=== PATIENT | male | born 1980 | race Caucasian/White ===

== ENCOUNTER 2025-01-14 07:20 | Day surgery (SDC) | payer OTHER, SELFPAY ==
--- NOTE | 2025-01-13 06:16 | EKG_ITS ---
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
[2025-01-13 07:16] VITALS: BMI 47.7
[2025-01-13 08:33] LABS: Basophils # (Auto) 0.1 Thou/mm3 (0.0-0.2); Basophils % (Auto) 1 % (0-2.5); Eosinophils # (Auto) 0.5 Thou/mm3 (0.0-0.5); Eosinophils % (Auto) 9 % (0-10); Hematocrit 43.4 % (41.0-53.0); Hemoglobin 15.7 g/dL (13.5-16.0); Immature Granulocytes Auto 0.01 Thou/mm3 (0.00-0.00); Lymphocytes # (Auto) 1.2 Thou/mm3 (1.0-4.8); Lymphocytes % (Auto) 25 % (10-50); Mean Corpuscular HGB Conc 36.2 g/dl (31.0-37.0); Mean Corpuscular Hemoglobin 30.8 pg (25.0-35.0); Mean Corpuscular Volume 85 fL (80-100); Monocytes # (Auto) 0.5 Thou/mm3 (0.0-0.8); Monocytes % (Auto) 10 % (0-12); Neutrophils # (Auto) 2.8 Thou/mm3 (1.8-7.7); Neutrophils % (Auto) 56 % (37-80); Nucleated Red Blood Cell # 0.00 Thou/mm3 (0.00-0.00); Nucleated Red Blood Cell % 0 /100 WBC (0); Platelet Count 262 Thou/mm3 (140-440); RDW Standard Deviation 37.7 fL (35.1-43.9); Red Blood Count 5.10 Miln/mm3 (4.50-5.90); White Blood Count 5.1 Thou/mm3 (3.8-10.6)
[2025-01-13 08:39] LABS: Anion Gap 8 (7-16); BUN/Creatinine Ratio 15 Ratio (12-20); Blood Urea Nitrogen 17 mg/dL (9-23); Calcium 9.3 mg/dL (8.3-10.6); Carbon Dioxide 28.3 mMol/L (20.0-31.0); Chloride 107 mMol/L (98-107); Creatinine (Component) 1.1 mg/dL (0.6-1.3); Estimated Creatinine Clearance 116.3 mL/min (>60); Glucose 112 mg/dL (74-106); Osmolality,Calculated 287 (275-295); Potassium 4.6 mMol/L (3.4-5.1); Sodium 143 mMol/L (136-145); eGFR > 60 See Note
[2025-01-14] VITALS (7 sets, daily range): BP systolic 115–134; BP diastolic 75–99; PULSE 73–90; RESP 12–20; TEMP 36.1–36.8; O2SAT 92–98; BMI 46.6
[2025-01-14] MEDS: RINGERS LACTATED 1000 ML 1,000 ML 20 ML IV (08:02)
--- NOTE | 2025-01-14 10:11 | ESOP_ITS ---
Date of Procedure 01/14/25 Pre Op Diagnosis Incarcerated ventral hernia Post Op Diagnosis Incarcerated ventral hernia Procedure Laparoscopic assisted, primary repair of incarcerated ventral hernia Findings An approximately 1 cm supraumbilical ventral hernia defect with incarcerated omentum Procedure Description Patient brought into the operating room in supine position. After administration of general orotracheal anesthesia, patient's abdomen prepped and draped in standard surgical manner. A 5 mm incision was made in left upper quadrant and Veress needle was inserted, pneumoperitoneum was obtained to 15 mmHg. The Veress needle was removed and a 5 mm trocar was placed. Laparoscopic camera was inserted, under direct visualization a laparoscopic camera a 5 mm trocar placed in left lower quadrant and additional 5 mm trocar placed in right lower quadrant. The abdomen was inspected and patient was noted to have an incarcerated supraumbilical ventral hernia with omentum being incarcerated within the hernia sac. The hernia sac was excised with Harmonic scalpel laparoscopically and the omentum was reduced. At this point approximately 3 cm semicircular incision was made superior to the umbilicus and dissection was carried to subcutaneous tissue. The hernia sac was circumferentially dissected off surrounding tissue and excised from surrounding abdominal fascia. The hernia sac along with incarcerated portion of omentum were excised. The fascia was cleared from overlying tissue. The defect was approximately 1 cm in marilia meter. I elected to primarily repair the defect. The defect was closed with interrupted sutures using 0 Ethibond. Deep soft tissue reapproximated with interrupted sutures using 0 Vicryl, subcutaneous tissue closed with interrupted sutures of 2-0 Vicryl. The abdomen was once again insufflated. Abdomen was inspected, the defect was closed, no additional defects noted. Pneumoperitoneum was evacuated and trocars removed. The incisions closed 4-0 Monocryl subcuticular fashion. Instruments, needles and sponge counts were reported to be correct ?2 patient tolerated the procedure well. Patient was extubated, breathing spontaneously and without difficulty and was transferred to postanesthesia care in stable condition. Anesthesia GETA and local Pathology / specimen Other (Hernia sac and contents) Estimated Blood Loss 5 Condition Stable Disposition PACU Surgeon Rebecca Clark MD Surgical Staff Operation Date: 01/14/25 09:40 Case Staff SURGICAL TERRITORY MANAGER: Jatinder Hung RNleases and land supervisor: Kris Mahoney
--- NOTE | 2025-01-14 10:23 | SUR.PHASEI ---
1023: Pt. AAOx4, vitals stable, breathing unlabored, complaint of pain, will give pain medication, no complaint of pain or nausea, x4 dermabond sites to ABD CDI, no active bleed noted. Report received from Jatinder GUEVARA and Humberto LR.
[2025-01-14] MEDS: fentaNYL CIT INJ 50 mCg/ML AMP 2ML 25 MCG IVP (10:32)
[2025-01-14] MEDS: fentaNYL CIT INJ 50 mCg/ML AMP 2ML IVP ×2 (10:40→10:51)
--- NOTE | 2025-01-14 11:23 | SUR.PHASEII ---
1123: Pt. AAOx4, vitals stable, breathing unlabored, no complaint of pain or nausea, dressing to ABD CDI, no active bleed noted, pt. tolerated sips of soda well, pt. ambulated to wheelchair with steady gait and no assist, no complications. Gave discharge instructions to the pt. and his ride, both verbalized understanding and had no further questions. Pt. left with all personal belongings.
== END 2025-01-14 11:23 | disposition home or self-care (01) ==
PROVIDERS: Referring Provider Surgery; Visit Provider Surgery
PROC: 0WQF4ZZ Repair Abdominal Wall, Percutaneous Endoscopic Approach (ICD-10-PCS; CPT 49592; principal; 2025-01-14 09:40)
DX: K43.6 Other and unspecified ventral hernia with obstruction, without gangrene (principal); Z01.810 Encounter for preprocedural cardiovascular examination
CPT/HCPCS: 49592; 36415; 80048; 85025; 93005; A4217; A4649; J0131; J1100; J2250; J2405; J2704; J3010; J3490; J7120; J1596